=== PATIENT | male | born 1965 | race Caucasian/White ===

== ENCOUNTER → 2018-06-30 | Outpatient (CLI) | payer BC ==
[~2018-06-30] MED LIST: None at this time
== END | disposition home or self-care (01) ==
LOC: STAR 14:42
PROVIDERS: ATTEND Radiology Diagnostic Radiology
DX: Z02.9 Encounter for administrative examinations, unspecified (principal)

== ENCOUNTER 2018-07-06 06:50 | Day surgery (SDC) | payer BC ==
[~2018-07-06] VITALS: Ht 167.6 cm; Wt 70.4 kg
[2018-07-06] MEDS ORDERED: NEO/BACI/POLY/HC OINT 15GM ONE (07:01)
[2018-07-06] MEDS ORDERED: LIDOCAINE 1%-EPI 1:100K, 30ML ONE (07:01)
[2018-07-06] MEDS ORDERED: OXYMETAZOLINE NASAL SPRAY 0.05%, 15ML ONE (07:01)
[2018-07-06] MEDS ORDERED: LACTATED RINGERS 1,000 ML IV SCH (07:22)
[2018-07-06] MEDS ORDERED: MIDAZOLAM 1 MG/ML, 2ML ONE (08:27)
[2018-07-06] MEDS ORDERED: FENTANYL PF 250 MCG/5ML ONE (08:28)
[2018-07-06] MEDS ORDERED: PROPOFOL 10 MG/ML, 20ML ONE (09:10)
[2018-07-06] MEDS ORDERED: DEXAMETHASONE 4 MG/ML, 1ML ONE (09:10)
[2018-07-06] MEDS ORDERED: SUCCINYLCHOLINE 20 MG/ML, 10ML ONE (09:10)
[2018-07-06] MEDS ORDERED: ONDANSETRON 2MG/ML, 2ML ONE (09:10)
[2018-07-06] MEDS ORDERED: OXYcodone 5 MG/5 ML ORAL.SOL UDC PO PRN (09:30)
[2018-07-06] MEDS ORDERED: FENTANYL PF 100 MCG/2ML IV PRN (09:30)
[2018-07-06] MEDS ORDERED: LABETALOL 5MG/ML, 20ML IV PRN (09:30)
[2018-07-06] MEDS ORDERED: ALBUTEROL SULFATE 2.5 MG/3 ML NPPB PRN (09:30)
[2018-07-06] MEDS ORDERED: hydrALAzine 20 MG/ML, 1ML IV PRN (09:30)
[2018-07-06] MEDS ORDERED: MEPERIDINE/PF 25MG/0.5ML IVPush PRN (09:30)
[2018-07-06] MEDS ORDERED: PROMETHAZINE 25 MG/ML, 1ML IV PRN (09:30)
[2018-07-06] MEDS ORDERED: HYDROmorphone 1 MG/ML, 1ML IV PRN (09:30)
[2018-07-06] MEDS ORDERED: ACETAMINOPHEN 325 MG TABLET PO PRN (09:30)
[2018-07-06] MEDS ORDERED: OXYcodone 5 MG/5 ML ORAL.SOL UDC ONE (10:40)
[2018-07-06] MEDS ORDERED: FENTANYL PF 100 MCG/2ML ONE (10:40)
== END 2018-07-06 12:20 | disposition home or self-care (01) ==
LOC: OUT 06:50
PROVIDERS: ATTEND Otolaryngology
DX: J34.3 Hypertrophy of nasal turbinates (principal); J32.8 Other chronic sinusitis; Z87.891 Personal history of nicotine dependence; Z98.890 Other specified postprocedural states; Z79.899 Other long term (current) drug therapy; Z82.49 Family history of ischemic heart disease and other diseases of the circulatory system
CPT/HCPCS: 30140; 31240; 31253; 31257; 31267; 88304; C1726; J0330; J1100; J2250; J2405; J2704; J3010; J3490; J7120